=== PATIENT | female | born 1955 ===

== ENCOUNTER 2017-09-23 10:27 | Emergency (ER) | payer OTHER ==
[~2017-09-23] VITALS: Ht 162.6 cm; Wt 100.7 kg
[~2017-09-23 10:27] MED LIST: ELAVIL PO; FLEXERIL10 MG PO; MOTRIN800 MG PO; SYNTEST D.S TAB1 TAB PO
== END 2017-09-23 16:15 | disposition home or self-care (01) ==
LOC: ER 10:27
DX: B34.9 Viral infection, unspecified (principal); J11.1 Influenza due to unidentified influenza virus with other respiratory manifestations